=== PATIENT | female | born 1985 | race Hispanic/Latino ===

== ENCOUNTER 2018-07-13 15:25 | Observation (INO) | payer MEDICAID ==
[~2018-07-13] VITALS: Ht 152.4 cm; Wt 44.9 kg
[2018-07-13] MEDS ORDERED: PROMETHAZINE HCL 25 MG/ML 1ML AMPULE IM PRN (15:30)
[2018-07-13] MEDS ORDERED: ACETAMINOPHEN 325 MG TAB PO PRN (15:30)
[2018-07-13 15:46] VITALS: BP 103/60
[2018-07-13 15:59] LABS: APPEARANCE,URINE Clear (CLEAR); BILIRUBIN,URINE Negative (NEGATIVE); COLOR,URINE Dark Yellow (YELLOW); GLUCOSE, URINE (UA) Negative (NEGATIVE); KETONES,URINE >=160 mg/dL (NEGATIVE); LEUKOCYTE ESTERASE ,URINE Moderate (NEGATIVE); NITRATE,URINE Negative (NEGATIVE); OCCULT BLOOD,URINE Trace (NEGATIVE); PROTEIN,URINE POS 1+ (NEGATIVE)
[2018-07-13 16:23] LABS: BACTERIA,URINE Few /HPF (None Seen); MUCUS,URINE Moderate LPF (None Seen); RBC,URINE 0-1 /HPF (0-1); SQUAMOUS EPITHELIAL CELL,UR Few /HPF (0-2)
[2018-07-13 16:25] LABS: HEMATOCRIT 28.7 % (36-48); MEAN CORPUSCULAR HGB CONC 34.5 g/dL (32.0-36.0); MEAN CORPUSCULAR VOLUME 78.2 fL (79-99); NUCLEATED RED BLOOD CELLS 0.1 % (0.0-0.19); PLATELET COUNT (AUTO) 59 K/uL (130-400); RED BLOOD CELL COUNT(AUTO) 3.67 MIL/uL (4.00-5.50)
[2018-07-13 16:36] LABS: ALBUMIN 3.2 g/dL (3.5-5.0); BILIRUBIN,TOTAL 0.6 mg/dL (0.2-1.0); CREATININE 0.6 mg/dL (0.5-1.5); POTASSIUM 4.2 mmol/L (3.5-5.1); TOTAL PROTEIN, SERUM 8.6 g/dL (6.0-8.3)
[2018-07-13] MEDS ORDERED: PROM25AM IJ (17:00)
[2018-07-13] MEDS ORDERED: DOXY1TAB3 PO ×2 (17:00)
[2018-07-13] MEDS ORDERED: ONDA8TAB11 PO (17:00)
[2018-07-13] MEDS ORDERED: ACET-2123 PO (17:00)
[2018-07-13] MEDS: LACTATED RINGERS 1000ML 1,000 ML IV SCH ×2 (17:18→19:24)
[2018-07-13] MEDS: PANTOPRAZOLE SODIUM 40 MG TABLET.DR PO SCH (17:18)
[2018-07-13 20:20] VITALS: BP 104/55
[2018-07-13 23:45] VITALS: BP 86/51
[2018-07-14] MEDS: LACTATED RINGERS 1000ML 1,000 ML IV SCH ×2 (02:24→14:23)
[2018-07-14 03:15] VITALS: BP 100/58
[2018-07-14 03:25] VITALS: BP 102/55
[2018-07-14 07:29] VITALS: BP 100/52
[2018-07-14] MEDS ORDERED: CEFTRIAXONE SODIUM 1 GM IVP SCH (08:00)
[2018-07-14] MEDS: PANTOPRAZOLE SODIUM 40 MG TABLET.DR PO SCH (09:31)
[2018-07-14 11:12] VITALS: BP 101/59
[2018-07-14 15:07] VITALS: BP 111/62
== END 2018-07-14 16:20 | disposition home or self-care (01) ==
LOC: WSH 15:25
PROVIDERS: ADMIT Obstetrics & Gynecology; ATTEND Obstetrics & Gynecology
DX: O21.0 Mild hyperemesis gravidarum (principal); E86.0 Dehydration; O21.2 Late vomiting of pregnancy; Z82.49 Family history of ischemic heart disease and other diseases of the circulatory system; Z79.899 Other long term (current) drug therapy; Z3A.01 Less than 8 weeks gestation of pregnancy; Z23 Encounter for immunization
CPT/HCPCS: 36415; 80053; 81001; 85027; 87088; 90471; 96361 ×2; 96372; 96374; A4218; G0378 ×26; J0696; J2550; J7120 ×2; Q2035

== ENCOUNTER 2018-11-09 04:36 | Observation (INO) | payer MEDICAID ==
[~2018-11-09] VITALS: Ht 154.9 cm; Wt 56.2 kg
[~2018-11-09 04:36] MED LIST: ACET-2123 PO; DOXY1TAB3 PO; ONDA8TAB11 PO; PROM25AM IJ
[2018-11-09 05:16] LABS: APPEARANCE,URINE CLOUDY (CLEAR); BILIRUBIN,URINE NEGATIVE (NEGATIVE); COLOR,URINE ORANGE (YELLOW); GLUCOSE, URINE (UA) NEGATIVE (NEGATIVE); KETONES,URINE NEGATIVE (NEGATIVE); LEUKOCYTE ESTERASE ,URINE MODERATE (NEGATIVE); NITRATE,URINE NEGATIVE (NEGATIVE); OCCULT BLOOD,URINE LARGE (NEGATIVE); PH,URINE 6.5 (5.0-8.0); PROTEIN,URINE 100 mg/dL (NEGATIVE); UROBILINOGEN,URINE 0.2 mg/dL (0.2-1.0)
[2018-11-09 05:35] LABS: AMPHET/METH SCREEN,URINE NEGATIVE (NEGATIVE); BARBITURATE SCREEN, URINE NEGATIVE (NEGATIVE); BENZODIAZEPINES SCREEN,URINE NEGATIVE (NEGATIVE); CANNABINOID SCREEN,URINE NEGATIVE (NEGATIVE); COCAINE SCREEN,URINE NEGATIVE (NEGATIVE); OPIATE SCREEN,URINE NEGATIVE (NEGATIVE); PHENCYCLIDINE SCREEN,URINE NEGATIVE (NEGATIVE)
[2018-11-09 05:36] LABS: BACTERIA,URINE Moderate /HPF (None Seen); TRICHOMONAS,URINE Many /LPF (None Seen); WBC,URINE Full Field /HPF (0-1)
[2018-11-09] MEDS ORDERED: CEFTRIAXONE SODIUM 1 GM IV SCH ×2 (06:00→06:15)
[2018-11-09] MEDS ORDERED: METRONIDAZOLE 500 MG TABLET PO SCH (06:00)
[2018-11-09] MEDS: LACTATED RINGERS 1000ML 1,000 ML IV PRN ×2 (06:20→07:08)
[2018-11-09 07:36] LABS: BASOPHILS % (AUTO) 0.3 % (0.0-5.0); EOSINOPHILS % (AUTO) 0.9 % (0.0-8.0); HEMATOCRIT 26.5 % (36-48); LYMPHOCYTES % (AUTO) 14.4 % (21.0-51.0); MEAN CORPUSCULAR HGB CONC 32.8 g/dL (32.0-36.0); MEAN CORPUSCULAR VOLUME 73.3 fL (79-99); MONOCYTES % (AUTO) 6.6 % (3.0-13.0); NEUTROPHILS % (AUTO) 77.8 % (40.0-77.0); NUCLEATED RED BLOOD CELLS 0.1 % (0.0-0.19); PLATELET COUNT (AUTO) 237 K/uL (130-400); RED BLOOD CELL COUNT(AUTO) 3.62 MIL/uL (4.00-5.50); WHITE BLOOD COUNT (AUTO) 6.2 K/uL (4.8-10.8)
[2018-11-09] MEDS ORDERED: AZITHROMYCIN 250 MG TABLET PO SCH (07:45)
[2018-11-10 08:17] LABS: HEPATITIS Bs ANTIGEN SCREEN P Negative (Negative)
== END 2018-11-09 10:22 | disposition home or self-care (01) ==
LOC: EDH 04:36 → LDH 04:49
PROVIDERS: ADMIT Obstetrics & Gynecology; ATTEND Obstetrics & Gynecology
DX: O26.852 Spotting complicating pregnancy, second trimester (principal); O62.9 Abnormality of forces of labor, unspecified; O10.912 Unspecified pre-existing hypertension complicating pregnancy, second trimester; O23.42 Unspecified infection of urinary tract in pregnancy, second trimester; Z3A.20 20 weeks gestation of pregnancy; Z79.899 Other long term (current) drug therapy
CPT/HCPCS: 36415; 59025; 76805; 80305; 81001; 85025; 86592; 86850; 86900; 86901; 87088; 87340; 87486; 87797; 96374; 99284; G0378 ×6; J0696; J7120

== ENCOUNTER 2020-04-06 14:58 | Emergency (ER) | payer MEDICAID ==
[~2020-04-06 14:58] MED LIST changes: -ONDA8TAB11 PO; +ONDA8TAB65 PO
[2020-04-06] MEDS ORDERED: ONDANSETRON HCL 4 MG/2 ML VIAL ONE ×2 (15:14→16:15)
[2020-04-06 15:43] LABS: APPEARANCE,URINE Clear (CLEAR); BILIRUBIN,URINE Negative (NEGATIVE); COLOR,URINE Dark Yellow (YELLOW); GLUCOSE, URINE (UA) Negative (NEGATIVE); KETONES,URINE >=160 mg/dL (NEGATIVE); LEUKOCYTE ESTERASE ,URINE Negative (NEGATIVE); NITRATE,URINE Negative (NEGATIVE); OCCULT BLOOD,URINE Negative (NEGATIVE); PH,URINE 6.5 (5.0-8.0); PROTEIN,URINE POS 1+ mg/dL (NEGATIVE)
[2020-04-06 15:44] LABS: BASOPHILS % (AUTO) 0.2 % (0.0-5.0); HEMATOCRIT 33.9 % (36-48); LYMPHOCYTES % (AUTO) 15.7 % (21.0-51.0); MEAN CORPUSCULAR HEMOGLOBIN 26.5 pg (27.0-33.0); MEAN CORPUSCULAR HGB CONC 35.1 g/dL (32.0-36.0); MEAN CORPUSCULAR VOLUME 75.5 fL (79-99); MONOCYTES % (AUTO) 7.6 % (3.0-13.0); NEUTROPHILS % (AUTO) 76.3 % (40.0-77.0); PLATELET COUNT (AUTO) 134 K/uL (130-400); RED BLOOD CELL COUNT(AUTO) 4.49 MIL/uL (4.00-5.50); RED CELL DISTRIBUTION WIDTH 14.6 % (11.0-15.5); WHITE BLOOD COUNT (AUTO) 4.9 K/uL (4.8-10.8)
[2020-04-06 15:51] LABS: AMPHET/METH SCREEN,URINE NEGATIVE (NEGATIVE); BARBITURATE SCREEN, URINE NEGATIVE (NEGATIVE); BENZODIAZEPINES SCREEN,URINE NEGATIVE (NEGATIVE); CANNABINOID SCREEN,URINE NEGATIVE (NEGATIVE); COCAINE SCREEN,URINE NEGATIVE (NEGATIVE); OPIATE SCREEN,URINE POSITIVE (NEGATIVE); PHENCYCLIDINE SCREEN,URINE NEGATIVE (NEGATIVE)
[2020-04-06 16:00] LABS: CREATININE 0.6 mg/dL (0.5-1.5); POTASSIUM 3.1 mmol/L (3.5-5.1)
[2020-04-06 16:01] LABS: INR 1.06 (0.85-1.15); PARTIAL THROMBOPLASTIN TIME 27.5 SEC (26.3-35.5); PROTHROMBIN TIME 11.4 SEC (9.6-11.6)
[2020-04-06 16:04] LABS: CREATINE KINASE, TOTAL 18 U/L (21-232); LIPASE 65 U/L (114-286)
[2020-04-06 16:05] LABS: ALBUMIN 3.8 g/dL (3.5-5.0); BILIRUBIN,TOTAL 0.8 mg/dL (0.2-1.0); TOTAL PROTEIN, SERUM 9.8 g/dL (6.0-8.3)
[2020-04-06 16:09] LABS: BACTERIA,URINE Rare /HPF (None Seen); MUCUS,URINE Few LPF (None Seen); SQUAMOUS EPITHELIAL CELL,UR 0-2 /HPF (0-2); WBC,URINE 0-1 /HPF (0-1)
[2020-04-06 16:10] LABS: CALCIUM OXALATE CRYSTALS,UR Moderate /LPF (None Seen)
== END 2020-04-06 17:32 | disposition home or self-care (01) ==
LOC: EDH 14:58
DX: E87.6 Hypokalemia (principal); R11.2 Nausea with vomiting, unspecified; E86.0 Dehydration; Z98.890 Other specified postprocedural states
CPT/HCPCS: 36415; 80053; 80305; 81001; 82550; 83690; 84484; 85025; 85610; 85730; 93005; 96361; 96374; 96376; 99284; J2405 ×2